=== PATIENT | female | born 1985 | race Caucasian/White ===

== ENCOUNTER → 2018-03-04 | Day surgery (SDC) | payer BC ==
[2018-02-25 12:03] VITALS: BMI 36.0
[~2018-03-04] VITALS: Ht 172.7 cm; Wt 106.8 kg
[~2018-03-04] MED LIST: FENTANYL CITRATE INJ 50 MCG/1 ML 2 ML VIAL ONE; HYDROXY-CUT PO; LIDOCAINE HCL 2% 2 ML VIAL (20MG/ML) ONE; MULT-1018 PO; PROPOFOL IV EMULSION 10 MG/ML 20 ML VIAL IV ONE; SODIUM CHLORIDE 0.9% 500ML 500 ML IV ONE
[2018-03-04 11:01] VITALS: Ht 172.7 cm; Wt 106.8 kg
--- NOTE | 2018-03-04 11:58 | Endo History and Physical ---
History & Physical Date of Service: Mar 04, 2018. Chief Complaint: hx colitis, occ rectal bleeding Referring Physician: Dr. Adame History of Present Illness 32 yo CF who presents for colonoscopy secondary to rectal bleeding and history of colitis. Past Surgical History Hx Cardiac Surgery: No Hx Internal Defibrillator: No Hx Pacemaker: No Hx Abdominal Surgery: Yes (APPY, SHEELA, TUBAL BANDING) Hx of Implantable Prosthesis: No Hx Post-Op Nausea and Vomiting: No Hx Cancer Surgery: No Hx Thoracic Surgery: No Hx Orthopedic: Yes (LEFT ACL REPAIR) Hx Urinary Tract Surgery: No Family History IBD Social History Smoking Status: Current Every Day Smoker Hx Substance Use: No Hx Alcohol Use: No Allergies Coded Allergies: Latex (Verified Allergy, Unknown, RASH, 03/04/18) Penicillins (Verified Allergy, Unknown, RASH/SWELLING, 03/04/18) Current Medications Reported Home Medications Medications Dose Route/Sig Max Daily Dose Days Date Category [Hydroxy-Cut] 1 Cap PO DIRECTED 02/25/18 Reported Hair Skin and Nails Formu (Multiple Vitamins W/ Minerals) 1 Tab Tab 1 Tab PO DAILY 02/25/18 Reported Vital Signs Weight (Kilograms): 106.82 Height (Feet): 5 Height (Inches): 8 Date Time Temp Pulse Resp B/P (MAP) Pulse Ox O2 Delivery O2 Flow Rate FiO2 03/04/18 11:07 36.7 92 18 111/72 (85) 99 Room Air Physical Exam General Appearance: WD/WN, no apparent distress Respiratory/Chest: Auscultation: breath sounds normal Cardiovascular: Heart Auscultation: RRR Abdomen: Bowel Sounds: normal Inspection & Palpation: soft, non-distended, no tenderness, guarding & rebound Assessment and Plan Assessment: 32 yo CF who presents for colonoscopy secondary to rectal bleeding and history of colitis. Plan: Proceed with colonoscopy.
--- NOTE | 2018-03-04 12:20 | Discharge Instructions ---
Endoscopy Patient Instructions Date / Procedure(s) Performed Mar 04, 2018. Colonoscopy Allergy Information Coded Allergies: Latex (Verified Allergy, Unknown, RASH, 03/04/18) Penicillins (Verified Allergy, Unknown, RASH/SWELLING, 03/04/18) Discharge Date / Findings Mar 04, 2018. Large amount of retained stool Medication Instructions OK to resume all medications today as prescribed Reported Home Medications Medications Dose Route/Sig Max Daily Dose Days Date Category [Hydroxy-Cut] 1 Cap PO DIRECTED 02/25/18 Reported Hair Skin and Nails Formu (Multiple Vitamins W/ Minerals) 1 Tab Tab 1 Tab PO DAILY 02/25/18 Reported Provider Instructions Activity Restrictions - No exercising or heavy lifting for 24 hours. - Do not drink alcohol the day of the procedure. - Do not drive a car or operate machinery until the day after the procedure. - Do not make any important decisions or sign important papers in 24 hours after the procedure. Following Day: - Return to full activity which may include returning to work/school. Diet Start your diet with liquids and light foods (jello, soup, juice, toast). Then eat your usual diet if not nauseated. Treatment For Common After Affects For mild abdominal pain, bloating, or excessive gas: - Rest - Eat lightly - Lie on right side Follow-Up Information Follow-up with Dr. Adame as scheduled Anesthesia Information What You Should Know You have had a procedure that required some medicine to reduce anxiety and discomfort. This treatment is called moderate sedation. After receiving the treatment, you may be sleepy, but you will be able to breathe on your own. The effects of the treatment may last for several hours. Follow these instructions along with Activity/Diet recommendations noted above: * Do NOT do anything where dizziness or clumsiness would be dangerous. * Rest quietly at home today, then you can be up and about tomorrow. * Have a responsible person stay with you the rest of today. * You may have had an I.V. today. If so, you may take the dressing off later today. Recommendations Call your doctor if: * Trouble breathing * Continuous vomiting for more than 24 hours * Temperature above 101 degrees * Severe abdominal pain or bloating * Pain not relieved by pain medicine ordered * There is increased drainage or redness from any incision * A large amount of rectal bleeding greater than 2-3 tablespoons. (If you had a polyp/s removed or have hemorrhoids, a small amount of blood - from the rectum is to be expected.) * You have any unanswered questions or concerns. IN THE EVENT OF A SERIOUS EMERGENCY, GO TO THE NEAREST EMERGENCY ROOM Your discharge instructions were prepared by provider Luis Fernando Prieto. Patient Instructions Signature Page Vanessa Meraz Patient (or Guardian) Signature/Date: I have read and understand the instructions given to me by my caregivers. Caregiver/RN/Doctor Signature/Date: The above-named patient and/or guardian has received patient instructions on this date. + Original Patient Signature Page (only) stays with chart. Please make copy for patient.
[2018-03-04 12:50] VITALS: BP 109/78; PULSE 74; O2SAT 99
--- NOTE | 2018-03-04 13:09 | Anesthesiology Progress Note ---
Anesthesia Post Op Note Date & Time Mar 04, 2018 at 13:08 Vital Signs Pain Intensity: 0 Vital Signs Past 12 Hours Date Time Temp Pulse Resp B/P (MAP) Pulse Ox O2 Delivery O2 Flow Rate FiO2 03/04/18 12:50 74 20 109/78 (88) 99 Room Air 03/04/18 12:35 78 18 109/73 (85) 94 Room Air 03/04/18 12:17 76 16 109/66 (80) 99 Room Air 03/04/18 11:07 36.7 92 18 111/72 (85) 99 Room Air Notes Mental Status: alert / awake / arousable, participated in evaluation Pt Amnestic to Procedure: Yes Nausea / Vomiting: adequately controlled Pain: adequately controlled Airway Patency, RR, SpO2: stable & adequate BP & HR: stable & adequate Hydration State: stable & adequate Anesthetic Complications: no major complications apparent
--- NOTE | 2018-03-05 11:34 | GI REPORT ---
Patient Name: Vanessa Meraz Procedure Date: 03/04/2018 11:48 AM Date of : 1985 Admit Type: Outpatient Age: 32 Gender: Female Attending MD: Luis Fernando Prieto DO Procedure: Colonoscopy Providers: Luis Fernando Prieto DO Referring MD: Juan C Adame Indications: Rectal bleeding Medicines: Monitored Anesthesia Care Complications: No immediate complications. Estimated Blood Loss: Estimated blood loss: none. Procedure: Pre-Anesthesia Assessment: - Prior to the procedure, a History and Physical was performed, and patient medications and allergies were reviewed. The patient's tolerance of previous anesthesia was also reviewed. The risks and benefits of the procedure and the sedation options and risks were discussed with the patient. All questions were answered, and informed consent was obtained. Prior Anticoagulants: The patient has taken no previous anticoagulant or antiplatelet agents. ASA Grade Assessment: II - A patient with mild systemic disease. After reviewing the risks and benefits, the patient was deemed in satisfactory condition to undergo the procedure. After I obtained informed consent, the scope was passed under direct vision. Throughout the procedure, the patient's blood pressure, pulse, and oxygen saturations were monitored continuously. The Scope was introduced through the anus with the intention of advancing to the ileum. The scope was advanced to the descending colon before the procedure was aborted. Medications were given. The colonoscopy was performed with difficulty due to unsatisfactory bowel prep. The patient tolerated the procedure well. The quality of the bowel preparation was poor. Findings: The perianal and digital rectal examinations were normal. A large amount of stool was found in the rectum, in the sigmoid colon and in the descending colon, precluding visualization. Impression: - Preparation of the colon was poor. - Stool in the rectum, in the sigmoid colon and in the descending colon. - No specimens collected. Recommendation: - Resume previous diet. - Continue present medications. - Repeat colonoscopy in 1 month because the bowel preparation was poor. - Return to primary care physician as previously scheduled. Luis Fernando Prieto DO 03/04/2018 4:40:45 PM This report has been signed electronically. Note Initiated On: 03/04/2018 11:48 AM Number of Addenda: 0 I attest to the content of the Intraoperative Record and orders documented therein, exceptions below {[id number]}
== END | disposition home or self-care (01) ==
LOC: C.GI 10:39
PROVIDERS: ATTEND Internal Medicine
DX: K52.9 Noninfective gastroenteritis and colitis, unspecified (principal); K62.5 Hemorrhage of anus and rectum; F17.200 Nicotine dependence, unspecified, uncomplicated; Z91.040 Latex allergy status; Z90.49 Acquired absence of other specified parts of digestive tract; Z88.0 Allergy status to penicillin